=== PATIENT | female | born 1990 | race Two or more races ===

== ENCOUNTER 2018-08-20 13:07 | Emergency (ER) | payer OTHER ==
[2018-08-20 13:12] VITALS: BP 131/74; PULSE 76; TEMP 98.6; BMI 28.6
--- NOTE | 2018-08-20 13:39 | PDOC ---
History of Present Illness - General Chief Complaint: Chest Pain Stated Complaint: CHEST PAIN Time Seen by Provider: 08/20/18 13:24 - History of Present Illness Initial Comments: 08/20/18 13:36 The patient is a 28 year old female with a PMH of fatty liver who presents to our ED c/o chest pain. Pain started acutely this morning when she woke up and starts underneath her left breast and radiates to her L shoulder and back and is sharp, 10/10, constant. Pain is worse with breathing and improved when she moves from a supine to a sitting position. Initially associated with palpitations that have since resolved. C/o nausea. Denies any shortness of breath, lightheadedness. No h/o recent illness or travel. Notes she was evaluated by a director of aviation 5+ years previous for an irregular heart beat NKDA Surgical: denies Social: denies nicotine, social alcohol, denies recreational drugs PMD: in [place], cannot recall name. Past History - Past Medical History Allergies/Adverse Reactions: Allergies Allergy/AdvReac Type Severity Reaction Status Date / Time No Known Allergies Allergy Verified 08/20/18 13:12 Home Medications: Ambulatory Orders Ibuprofen 600 mg PO TID 14 Days #42 tablet 08/20/18 COPD: No - Suicide/Smoking/Psychosocial Hx Smoking History: Never smoked Review of Systems - Review of Systems Constitutional: No: Chills, Fever HEENTM: No: Blurred Vision, Double Vision Respiratory: No: Cough, Shortness of Breath Cardiac (ROS): Yes: Chest Pain, Palpitations. No: Lightheadedness, Syncope ABD/GI: Yes: Nausea. No: Constipated, Diarrhea, Vomiting : No: Burning, Dysuria *Physical Exam - Vital Signs Last Vital Signs Temp Pulse Resp BP Pulse Ox 98.6 F 76 18 131/74 99 08/20/18 13:10 08/20/18 13:10 08/20/18 13:10 08/20/18 13:10 08/20/18 13:10 - Physical Exam General Appearance: Yes: Nourished, Appropriately Dressed HEENT: positive: Normal Voice, Hearing Grossly Normal Neck: positive: Normal Thyroid, Supple Respiratory/Chest: positive: Lungs Clear, Normal Breath Sounds, Other (anterior chest wall -reproducible chest pain; chest pain improved from supine to sitting ) Cardiovascular: positive: S1, S2 Vascular Pulses: Dorsalis-Pedis (R): 2+, Doralis-Pedis (L): 2+ Gastrointestinal/Abdominal: positive: Normal Bowel Sounds, Soft Musculoskeletal: negative: CVA Tenderness (R), CVA Tenderness (L) Extremity: positive: Normal Capillary Refill, Normal Inspection Integumentary: positive: Normal Color, Dry, Warm Heart Score/ECG Review - ECG Impressions Comment:: 08/20/18 13:50 HR 75, SR with PACS, normal intervals, no deviations, no ADAM/STD/TWI - non- ischemic ECG ED Treatment Course - LABORATORY CBC & Chemistry Diagram: 08/20/18 14:00 08/20/18 14:03 Medical Decision Making - Medical Decision Making 08/20/18 13:39 28 year old female with chest pain. VS unremarkable. Reproducible chest pain on PE. History suggestive of pericarditis. Frontal diagnosis: pericarditis, costochondritis, muskoskeletal, less likely r/o ACS. Will obtain basic labs, CXR, EKG, Troponin x1. Reassess. 08/20/18 15:09 ECG non-ischemic as documented in ECG section of EMR Troponin (-) 08/20/18 15:43 Heart Score 1 08/20/18 16:32 Pain improved s/p Toradol Patient counseled on working diagnosis and importance of medication adherence, cardiology follow-up. Will discharge home with Ibuprofen TID as well as cardiology referral. Clinical Impression: Pericarditis I discussed the physical exam findings, ancillary test results and final diagnoses with the patient. I answered all of the patient's questions. The patient was satisfied with the care received and felt comfortable with the discharge plan and treatment plan. The patient will return to the Emergency Department with any new, persistent or worsening symptoms. *DC/Admit/Observation/Transfer Diagnosis at time of Disposition: Chest pain - Discharge Dispostion Disposition: HOME Condition at time of disposition: Good Decision to Admit order: No - Prescriptions Prescriptions: Ibuprofen 600 mg PO TID 14 Days #42 tablet - Referrals Referrals: Vicki Morocho MD [Primary Care Provider] - Ernst Eduardo MD [Staff Physician] - - Patient Instructions Printed Discharge Instructions: Pericarditis -- Adult, DI for Pericarditis Additional Instructions: You were evaluated today for chest pain. Our clinical impression is that you have a condition called pericarditis. We have sent a prescription for Ibuprofen to your pharmacy. Please take as directed. This is the standard treatment for pericarditis. Make a follow-up appointment with Dr. Eduardo ([facility]) in the next 3 days. Please also follow up with your primary care doctor in the next 1 week. Return to the Emergency Department for any new/worsening/concerning conditions. - Post Discharge Activity
--- NOTE | 2018-08-20 13:55 | PDOC ---
Attending Attestation - Resident Resident Name: Ramila Crandall - ED Attending Attestation I have performed the following: I have examined & evaluated the patient, The case was reviewed & discussed with the resident, I agree w/resident's findings & plan, Exceptions are as noted - HPI HPI: 28 yo F no significant past medical history presents with cp that woke her up this morning. Worse with lying flat, better with standing up. Denies SOB, PIZANO, leg swelling, pleuritic pain. No recent illness, no fevers, no known sick contacts. No prior similar symptoms. - Physicial Exam PE: GENERAL: Awake, alert, and fully oriented, in no acute distress HEAD: No signs of trauma EYES: PERRLA, EOMI, sclera anicteric, conjunctiva clear ENT: Auricles normal inspection, hearing grossly normal, nares patent, oropharynx clear without exudates. Moist mucosa NECK: Normal ROM, supple, no lymphadenopathy, JVD, or masses LUNGS: Breath sounds equal, clear to auscultation bilaterally. No wheezes, and no crackles HEART: Regular rate and rhythm, normal S1 and S2, no murmurs, rubs or gallops. Pain elicited upon lying flat. ABDOMEN: Soft, nontender, normoactive bowel sounds. No guarding, no rebound. No masses EXTREMITIES: Normal range of motion, no edema. No clubbing or cyanosis. No cords, erythema, or tenderness NEUROLOGICAL: Cranial nerves II through XII grossly intact. Normal speech, normal gait SKIN: Warm, Dry, normal turgor, no rashes or lesions noted. - Medical Decision Making Symptoms most consistent with pericarditis. Low risk for PE, ACS, ptx. CXR and EKG obtained, no acute findings. Labs wnl. Stable for DC home on NSAIDs.
[2018-08-20 14:08] LABS: BASO % 0.4 % (0-2.0); EOS % 2.3 % (0-4.5); HEMATOCRIT 38.5 % (32.4-45.2); HEMOGLOBIN 13.5 GM/dL (10.7-15.3); LYMPH % 30.9 % (8-40); MCH 32.9 pg (25.7-33.7); MEAN CELL VOLUME 94.1 fl (80-96); MEAN PLT VOLUME 7.5 fl (7.5-11.1); MONO % 10.2 % (3.8-10.2); NEUT % 56.2 % (42.8-82.8); PLATELET COUNT 320 K/MM3 (134-434); RBC 4.09 M/mm3 (3.60-5.2); RDW 12.9 % (11.6-15.6); WHITE BLOOD COUNT 8.7 K/mm3 (4.0-10.0)
[2018-08-20 14:39] LABS: ALBUMIN 3.8 g/dl (3.4-5.0); ALK PHOS 79 U/L (45-117); ANION GAP 7 MMOL/L (8-16); BILIRUBIN,TOTAL 0.6 mg/dL (0.2-1); BLOOD UREA NITROGEN 9 mg/dL (7-18); CALCIUM 8.9 mg/dL (8.5-10.1); CHLORIDE 107 mmol/L (98-107); CO2 25 mmol/L (21-32); CREATININE 0.6 mg/dL (0.55-1.3); GLUCOSE,RANDOM 83 mg/dL (74-106); POTASSIUM 4.2 mmol/L (3.5-5.1); SGOT/AST 24 U/L (15-37); SGPT/ALT 51 U/L (13-61); SODIUM 139 mmol/L (136-145); TOT PROT 7.6 g/dl (6.4-8.2)
[2018-08-20] MEDS ORDERED: KETOROLAC TROMETHAMINE 30 MG/1 ML VIAL IVPUSH ONE (14:46)
[2018-08-20] MEDS ORDERED: KETOROLAC TROMETHAMINE 30 MG/1 ML VIAL ONE (15:11)
--- NOTE | 2018-08-21 10:36 | EKG ---
Test Reason : Blood Pressure : / mmHG Vent. Rate : 075 BPM Atrial Rate : 075 BPM P-R Int : 148 ms QRS Dur : 084 ms QT Int : 376 ms P-R-T Axes : 057 070 044 degrees QTc Int : 419 ms SINUS RHYTHM WITH PREMATURE ATRIAL COMPLEXES OTHERWISE NORMAL ECG NO PREVIOUS ECGS AVAILABLE Confirmed by BASSAM MACIAS MD ([id number]) on 08/21/2018 10:36:01 AM Referred By: Confirmed By:BASSAM MACIAS MD
== END 2018-08-20 17:20 | disposition home or self-care (01) ==
LOC: JER 13:07
PROC: 3E0333Z Introduction of Anti-inflammatory into Peripheral Vein, Percutaneous Approach (ICD-10-PCS; principal; 2018-08-20)
DX: R07.9 Chest pain, unspecified (principal); Z87.19 Personal history of other diseases of the digestive system
CPT/HCPCS: 36415; 71045-TC-FY; 80053; 82550; 84484; 84703; 85025; 93005; 93010; 96374; 99283-25

== ENCOUNTER 2018-11-05 20:27 | Emergency (ER) | payer OTHER ==
[2018-11-05 20:40] VITALS: BP 134/85; PULSE 73; TEMP 98; BMI 27.6
--- NOTE | 2018-11-05 21:32 | PDOC ---
History of Present Illness - General Chief Complaint: Chest Pain Stated Complaint: CHEST AND BACK PAIN History Source: Patient Exam Limitations: No Limitations - History of Present Illness Initial Comments: 28 yo F with a hx of scoliosis presents to the emergency department with chest pain with associative left rib, left deltoid, and left upper back pain. Per the patient, she has had this pain for 1.5 months that worsens with deep breathing and movement. She states its 10/10 and feels like a momentary sharp pain. Ibuprofen relieves the pain in totality but states the pain comes back afterwards. She denies pulling a muscle or over exerting herself muscle reece. Endorses the following: SOB with chest pain. Of note, she had similar pain in the ED in Aug 2018 and diagnosed with pericarditis. Denies worsening symptoms with exertion. States she does not exercise, currently in PT for scoliosis, and works in an office. Endorses worsening pain when slouched and relieving of symptoms when she sits upright. Denies the following: fever, chills, nausea, vomiting, abdominal pain, dysuria, hematuria, diarrhea, melena, hematochezia, and leg pain/swelling. Denies OCP use. O Meds: None Allergies: NKDA Social: Denies tobacco, alcohol, and substance abuse. Past History - Past Medical History Allergies/Adverse Reactions: Allergies Allergy/AdvReac Type Severity Reaction Status Date / Time No Known Allergies Allergy Verified 11/05/18 20:39 Home Medications: Ambulatory Orders NK [No Known Home Medication] 11/05/18 COPD: No Other medical history: fatty liver - Suicide/Smoking/Psychosocial Hx Smoking History: Never smoked Review of Systems - Review of Systems Constitutional: No: Chills, Diaphoresis, Fever, Weakness HEENTM: No: Eye Pain, Recent change in vision, Ear Pain, Nose Pain, Throat Pain , Mouth Pain Respiratory: No: Cough, Shortness of Breath, SOB with Exertion, Hemoptysis Cardiac (ROS): No: Chest Pain, Edema, Lightheadedness, Palpitations, Syncope, Chest Tightness ABD/GI: No: Constipated, Diarrhea, Nausea, Poor Appetite, Poor Fluid Intake, Rectal Bleeding, Vomiting, Tarry Stools : No: Burning, Dysuria, Hematuria, Urgency Musculoskeletal: Yes: Back Pain, Joint Pain, Muscle Pain. No: Neck Pain Integumentary: No: Dryness, Erythema, Flushing, Lesions, Lumps, Pruritus, Rash Neurological: No: Headache, Numbness, Tingling, Tremors, Ataxia, Dizziness Psychiatric: No: Change in Appetite Endocrine: No: Unexplained Weight Gain Hematologic/Lymphatic: No: Anemia *Physical Exam - Vital Signs Last Vital Signs Temp Pulse Resp BP Pulse Ox 98 F 73 18 134/85 100 11/05/18 20:39 11/05/18 20:39 11/05/18 20:39 11/05/18 20:39 11/05/18 20:39 - Physical Exam General Appearance: Yes: Nourished, Appropriately Dressed. No: Apparent Distress, Intoxicated HEENT: positive: EOMI, STANLEY, Normal ENT Inspection, Normal Voice, Symmetrical, Pharynx Normal, Hearing Grossly Normal. negative: Pale Conjunctivae, Scleral Icterus (R), Scleral Icterus (L), Muffled/Hoarse voice, Pharyngeal Erythema, Tonsillar Exudate, Tonsillar Erythema, Nasal Congestion, Rhinorrhea, Sinus Tenderness, Excessive drooling Neck: positive: Trachea midline. negative: Tender, Lymphadenopathy (R), Lymphadenopathy (L), Tender lateral, Tender midline Respiratory/Chest: positive: Chest Tender (left chest wall), Lungs Clear, Normal Breath Sounds. negative: Respiratory Distress, Accessory Muscle Use, Paradoxal Breathing, Crackles, Rales, Rhonchi, Stridor, Wheezing, Hyperresonant Cardiovascular: positive: Regular Rhythm, Regular Rate, S1, S2. negative: Systolic Murmur Gastrointestinal/Abdominal: positive: Normal Bowel Sounds, Flat, Soft. negative : Tender, Distended, Rebound, Tenderness, Hernia Musculoskeletal: positive: Normal Inspection, Other (tenderness to palpation in the left rhomboid area with tenderness to palpation in the trapezius. of note, poor posture with scoliosis present to the right. ). negative: CVA Tenderness, CVA Tenderness (R), CVA Tenderness (L), Vertebral Tenderness Extremity: positive: Normal Capillary Refill, Normal Inspection, Normal Range of Motion. negative: Tender, Swelling, Calf Tenderness Integumentary: positive: Normal Color, Dry, Warm. negative: Diaphoresis, Hives , Petechiae, Swelling, Ecchymosis Neurologic: positive: television director II-XII NML intact, Fully Oriented, Alert, Normal Mood/ Affect, Normal Response, Motor Strength 5/5. negative: EOM Palsy, Facial Droop , Sensory Deficit Moderate Sedation - Procedure Monitoring Vital Signs: Procedure Monitoring Vital Signs Temperature 98 F 11/05/18 20:39 Pulse Rate 73 11/05/18 20:39 Respiratory Rate 18 11/05/18 20:39 Blood Pressure 134/85 11/05/18 20:39 O2 Sat by Pulse Oximetry (%) 100 11/05/18 20:39 ED Treatment Course - LABORATORY CBC & Chemistry Diagram: 11/05/18 23:04 11/05/18 23:04 Medical Decision Making - Medical Decision Making 28 yo F with a hx of scoliosis presents to the emergency department with chest pain with associative left rib, left deltoid, and left upper back pain. Initial vitals: Initial Vital Signs Temp Pulse Resp BP Pulse Ox 98 F 73 18 134/85 100 11/05/18 20:39 11/05/18 20:39 11/05/18 20:39 11/05/18 20:39 11/05/18 20:39 work up: ddx: pericarditis, muscular strain, costochondritis, acs, PNA, pleuritis, URI Laboratory Tests 11/05/18 11/05/18 11/05/18 23:04 23:04 23:10 WBC 10.5 H RBC 4.09 Hgb 13.2 Hct 38.0 MCV 93.0 MCH 32.3 MCHC 34.7 RDW 12.8 Plt Count 338 MPV 7.3 L Absolute Neuts (auto) 6.4 Neutrophils % 61.3 Lymphocytes % 29.0 Monocytes % 7.2 Eosinophils % 1.9 Basophils % 0.6 Nucleated RBC % 0 Sodium 139 Potassium 3.9 Chloride 104 Carbon Dioxide 26 Anion Gap 9 BUN 12 Creatinine 0.8 Creat Clearance w eGFR > 60 Random Glucose 87 Calcium 9.4 Total Bilirubin 0.4 AST 23 ALT 46 Alkaline Phosphatase 96 Creatine Kinase 125 Troponin I < 0.02 Total Protein 8.5 H Albumin 4.2 Lipase 118 Urine HCG, Qual Negative patient had an echo by Dr. Mantilla that showed no abnormalities within the last 2 months. pain improved significantly with ibuprofen. EKG did not show ST elevations or depressions. CXR was clear of acute pathologies. labs within normal limits with normal vitals signs. patient was given instruction to follow up with orthopedics as this is likely musculoskeletal in nature. was given return precautions. Dispo: Discharge. *DC/Admit/Observation/Transfer Diagnosis at time of Disposition: Musculoskeletal pain - Discharge Dispostion Disposition: HOME Decision to Admit order: No - Referrals Referrals: Vicki Morocho MD [Primary Care Provider] - Remy Jiménez DO [Staff Physician] - - Patient Instructions Printed Discharge Instructions: DI for Low Back Pain, DI for Thoracic Back Pain Additional Instructions: you were seen for chest and back pain. your heart enzymes were within normal limits, your chest xray was normal. please follow up with your primary medical doctor within 1 week after discharge. please follow up with the orthopedic doctor within 1 week after discharge. please take 200 mg of ibuprofen every 4-6 hours as needed for pain. please exercise and have stretches incorporated into this. its important to stretch the muscles. maintain good posture as this will aide in your pain. please return to the emergency department if you have worsening pain or new concerning symptoms such as focal neurological deficits, chest pain with new qualities, and fever and chills with loss of motor and sensory capabilities. thank you. - Post Discharge Activity
[2018-11-05 23:11] LABS: BASO % 0.6 % (0-2.0); EOS % 1.9 % (0-4.5); HEMOGLOBIN 13.2 GM/dL (10.7-15.3); MCH 32.3 pg (25.7-33.7); MCHC 34.7 g/dl (32.0-36.0); MEAN PLT VOLUME 7.3 fl (7.5-11.1); MONO % 7.2 % (3.8-10.2); NEUT % 61.3 % (42.8-82.8); PLATELET COUNT 338 K/MM3 (134-434); RBC 4.09 M/mm3 (3.60-5.2); RDW 12.8 % (11.6-15.6); WHITE BLOOD COUNT 10.5 K/mm3 (4.0-10.0)
[2018-11-05] MEDS ORDERED: IBUPROFEN 600 MG TABLET (FP) PO ONE ×2 (23:15→23:21)
--- NOTE | 2018-11-05 23:38 | PDOC ---
Attending Attestation - HPI HPI: 11/05/18 23:40 The patient was a 28 year old female with no past medical history who presents to the ED today complaining of chest pain for a month. The patient reports intermittent left sided chest discomfort that radiates into her scapula and got worse today. The patient reports having a similar episode in august but saw a underground production foreperson who did an echo and results were normal. Denies fever or chills. Denies nausea or vomiting. Denies any other symptoms. - Physicial Exam PE: 11/05/18 23:40 GENERAL: Well developed, well nourished. Awake and alert. No acute distress. HEENT: Normocephalic, atraumatic. PERRLA, EOMI. No conjunctival pallor. Sclera are non- icteric. Moist mucous membranes. Oropharynx is clear. NECK: Supple. Full ROM. No JVD. Carotid pulses 2+ and symmetric, without bruits. No thyromegaly. No lymphadenopathy. CARDIOVASCULAR: Regular rate and rhythm. No murmurs, rubs, or gallops. Distal pulses are 2+ and symmetric. PULMONARY: No evidence of respiratory distress. Lungs clear to auscultation bilaterally. No wheezing, rales or rhonchi. ABDOMINAL: Soft. Non-tender. Non-distended. No rebound or guarding. No organomegaly. Normoactive bowel sounds. MUSCULOSKELETAL Normal range of motion at all joints. No bony deformities or tenderness. No CVA tenderness. EXTREMITIES: No cyanosis. No clubbing. No edema. No calf tenderness. SKIN: Warm and dry. Normal capillary refill. No rashes. No jaundice. NEUROLOGICAL: Alert, awake, appropriate. Cranial nerves 2-12 intact. No deficits to light touch and temperature in face, upper extremities and lower extremities. No motor deficits in the in face, upper extremities and lower extremities. Normoreflexic in the upper and lower extremities. Normal speech. Toes are down- going bilaterally. Gait is normal without ataxia. PSYCHIATRIC: Cooperative. Good eye contact. Appropriate mood and affect. <James Santamaria - Last Filed: 11/05/18 23:40> - Resident Resident Name: Reji Go - ED Attending Attestation I have performed the following: I have examined & evaluated the patient, The case was reviewed & discussed with the resident, I agree w/resident's findings & plan, Exceptions are as noted - Medical Decision Making 11/06/18 02:32 28 yo female who has been having left sided chest pain for more than a month. The pain goes to her left shoulder. It worsens with mvmt no ischemia on ekg neg trop pt saw underground production foreperson for this and had the dictated report that showed normal study with normal aortic ,mitral, tricispid and pulmonary valves . Normal LV function cxr normal mediastinum,no infiltrates,no pts,no effusions imp musculoskeletal pain <Sherice Mchugh - Last Filed: 11/06/18 02:36> Attestations - Attestations 11/05/18 23:40 Documentation prepared by James Santamaria, acting as medical center manager for Sherice Mchugh MD <James Santamaria - Last Filed: 11/05/18 23:40>
[2018-11-05 23:42] LABS: BLOOD UREA NITROGEN 12 mg/dL (7-18); CREATININE 0.8 mg/dL (0.55-1.3); GLUCOSE,RANDOM 87 mg/dL (74-106)
[2018-11-05 23:43] LABS: ALBUMIN 4.2 g/dl (3.4-5.0); ALK PHOS 96 U/L (45-117); ANION GAP 9 MMOL/L (8-16); BILIRUBIN,TOTAL 0.4 mg/dL (0.2-1); CALCIUM 9.4 mg/dL (8.5-10.1); CHLORIDE 104 mmol/L (98-107); CO2 26 mmol/L (21-32); LIPASE 118 U/L (73-393); POTASSIUM 3.9 mmol/L (3.5-5.1); SGOT/AST 23 U/L (15-37); SGPT/ALT 46 U/L (13-61); SODIUM 139 mmol/L (136-145); TOT PROT 8.5 g/dl (6.4-8.2)
--- NOTE | 2018-11-06 12:08 | EKG ---
Test Reason : Blood Pressure : / mmHG Vent. Rate : 071 BPM Atrial Rate : 071 BPM P-R Int : 148 ms QRS Dur : 090 ms QT Int : 406 ms P-R-T Axes : 042 072 052 degrees QTc Int : 441 ms NORMAL SINUS RHYTHM NORMAL ECG WHEN COMPARED WITH ECG OF 20-AUG-2018 13:14, PREMATURE ATRIAL COMPLEXES ARE NO LONGER PRESENT Confirmed by ROSIBEL BRAN MD ([id number]) on 11/06/2018 12:08:08 PM Referred By: Confirmed By:ROSIBEL BRAN MD
== END 2018-11-06 00:33 | disposition home or self-care (01) ==
LOC: JER 20:27
DX: R07.89 Other chest pain (principal); M41.9 Scoliosis, unspecified
CPT/HCPCS: 36415; 71046-TC-FY; 80053; 82550; 83690; 84484; 84703; 85025; 93005; 93010; 99281-25; 99284-25